=== PATIENT | female | born 1945 | race Caucasian/White ===

== ENCOUNTER → 2018-06-19 | Outpatient (CLI) | payer MEDICARE | LOC: M RAD 13:25 | DX: M25.572 Pain in left ankle and joints of left foot (principal); Z96.7 Presence of other bone and tendon implants; M19.072 Primary osteoarthritis, left ankle and foot | CPT/HCPCS: 73700 ==

== ENCOUNTER → 2019-04-02 | Outpatient (CLI) | payer MEDICARE ==
[~2019-04-02] MED LIST: ISOVUE-370 76% 100ML VIAL (Q9967) As Ordered ONE
--- NOTE | 2019-04-02 11:59 | REP ---
CT STUDY OF THE CHEST WITH IV CONTRAST: HISTORY: Malignant neoplasm of the thymus. No comparison CT study. CT CONTRAST DOSE: 75 mL of intravenous Isovue [address] FINDINGS: Preliminary digital foreign student adviser radiograph shows a degenerative disc disease in the thoracic spine and a tortuous thoracic aorta. There is no evidence of anterior mediastinal mass to suggest a thymic neoplasm. No mediastinal or hilar adenopathy is appreciated. No pleural or pericardial effusion is seen. No adrenal lesion is observed. There are multiple small low-density areas in the liver consistent with cysts. The largest of these measures 1.1 cm in greatest diameter. There is some vascular calcification. There is no evidence of aortic dissection. No axillary or extrathoracic mass or adenopathy is seen. No acute bony abnormality is observed. Lung window settings show no pulmonary nodule or mass lesion. Incidental note is made of two small intrarenal calculi in the upper pole collecting system of the right kidney, each 3 mm in greatest diameter. IMPRESSION: No evidence of mediastinal mass or adenopathy. No active cardiopulmonary disease. Small hepatic cysts and intrarenal nephrolithiasis right kidney noted as incidental findings. Otherwise no active disease. Electronically Signed by Gera Olguin MD 04/02/2019 12:39 P
== END ==
LOC: M RAD 09:08
PROVIDERS: ATTEND Psychiatry & Neurology Neurology
DX: C37 Malignant neoplasm of thymus (principal)
CPT/HCPCS: 71260; 82565; 84520; Q9967

== ENCOUNTER → 2019-04-02 | Outpatient (REF) | payer MEDICARE ==
[2019-04-02 10:48] LABS: BLOOD UREA NITROGEN 18 MG/DL (7-18); CREATININE FOR GFR 0.89 MG/DL (0.55-1.30); GLOMERULAR FILTRATION RATE > 60.0 (>39)
== END ==
LOC: M LAB REF 10:07
PROVIDERS: ATTEND Psychiatry & Neurology Neurology
DX: C37 Malignant neoplasm of thymus (principal)

== ENCOUNTER → 2019-10-20 | Outpatient (CLI) | payer MEDICARE ==
--- NOTE | 2019-10-20 14:30 | REP ---
Bilateral lower extremity arterial Doppler ultrasound: History: Leg pain. Findings: Ankle brachial indices are normal measured at 1.2 on the right and 0.9 on the left. Triphasic and biphasic waveforms are noted throughout both lower extremity arterial arterial Doppler tracings. Reversal of flow in the distal anterior tibial artery on the left is observed. Minimal plaquing is seen. No stenotic site is identified. Right lower extremity arterial Doppler velocity chart: CF A 129 cm/S Profunda 62 Proximal SFA 111 Mid SFA 96 Distal SFA 85 Popliteal 48 Proximal AT A 39 Tibioperoneal trunk 52 Proximal TASTE TESTER 28 Distal TASTE TESTER 84 Distal AT A 40 Left lower extremity arterial Doppler velocity chart: CF A 85 cm/S Profunda 69 Proximal SFA 101 Mid SFA 97 Distal SFA 75 Popliteal 48 Proximal AT A 51 Tibioperoneal trunk 68 Proximal TASTE TESTER 15 Distal TASTE TESTER 49 Distal AT A 27, reversed. Electronically Signed by Gera Olguin MD 10/20/2019 02:23 P
== END ==
LOC: M RAD 12:47
PROVIDERS: ATTEND Physician Assistant
DX: M79.606 Pain in leg, unspecified (principal)

== ENCOUNTER → 2020-07-08 | Outpatient (CLI) | payer MEDICARE ==
--- NOTE | 2020-08-02 08:04 | REP ---
BILATERAL LOWER EXTREMITY DOPPLER ULTRASOUND CLINICAL: Chronic venous insufficiency. TECHNIQUE: Real-time gerard scale and color Doppler evaluation using linear high frequency transducer. FINDINGS: Ultrasound examination of the bilateral deep venous structures from the common femoral vein to the popliteal vein demonstrates normal compressibility, flow, and wave patterns in response to respiration and augmentation, and there is no evidence for deep venous thrombosis. Right Bakers cyst in the popliteal fossa measures 3.6 x 1.3 x 3.3 cm. Reflux evaluation demonstrates no reflux through the left lower extremity. Reflux evaluation of the right lower extremity demonstrates reflux through the proximal to mid greater saphenous vein. The proximal saphenous vein measures 6.6 mm in diameter with reflux duration 3.9 seconds. The mid greater saphenous vein measures 4.6 mm in diameter with reflux duration 4.8 seconds. The examination was performed with the bed tipped as the patient could not stand. Multiple right-sided collaterals were also identified. IMPRESSION: * No evidence for deep venous thrombosis. * Mild right lower extremity greater saphenous vein reflux and few right lower extremity collaterals noted. * Bakers cyst in the right popliteal fossa. MTDD
== END ==
LOC: M RAD 12:50
PROVIDERS: ATTEND Physician Assistant
DX: I87.2 Venous insufficiency (chronic) (peripheral) (principal); M71.21 Synovial cyst of popliteal space [Baker], right knee; M79.604 Pain in right leg

== ENCOUNTER → 2021-12-15 | Outpatient (CLI) | payer MEDICARE ==
[2021-12-15 15:34] LABS: BASO # 0.1 10^3/uL (0.0-0.2); BASO % 0.7 % (0.0-1.0); EOS # 0.2 10^3/uL (0.0-0.5); EOS % 2.6 % (0.0-3.0); HEMATOCRIT 44.8 % (36.0-47.0); HEMOGLOBIN 14.3 g/dl (12.0-15.5); LYMPH # 1.8 10^3/uL (1.5-5.0); MEAN CORPUSCULAR HEMOGLOBIN 30.8 pg (27.0-33.0); MEAN CORPUSCULAR HGB CONC 31.9 g/dl (32.0-36.5); MEAN CORPUSCULAR VOLUME 96.6 fl (80.0-96.0); MONO # 0.6 10^3/uL (0.0-0.8); MONO % 7.6 % (2.0-8.0); NEUTROPHILS # 5.1 10^3/uL (1.5-8.5); NEUTROPHILS % 65.8 % (36.0-66.0); PLATELET COUNT, AUTOMATED 270 10^3/uL (150-450); RED BLOOD COUNT 4.64 10^6/uL (4.00-5.40); WHITE BLOOD COUNT 7.7 10^3/uL (4.0-10.0)
[2021-12-15 15:46] LABS: ALBUMIN 3.9 GM/DL (3.2-5.2); ALT/SGPT 24 U/L (12-78); BILIRUBIN,TOTAL 0.6 MG/DL (0.2-1.0); BLOOD UREA NITROGEN 26 MG/DL (7-18); CALCIUM LEVEL 9.7 MG/DL (8.8-10.2); CARBON DIOXIDE LEVEL 30 MEQ/L (21-32); CHLORIDE LEVEL 105 MEQ/L (98-107); CREATININE FOR GFR 0.87 MG/DL (0.55-1.30); FERRITIN 90 NG/ML (8-252); FREE T4 1.29 NG/DL (0.76-1.46); GLOMERULAR FILTRATION RATE > 60.0 (>39); GLUCOSE, FASTING 84 MG/DL (70-100); IRON (FE) 89 UG/DL (50-170); PERCENT SATURATION 23.2 % (13.2-45.0); POTASSIUM SERUM 5.1 MEQ/L (3.5-5.1); RHEUMATOID FACTOR QUANT < 10.0 IU/ML (<15.0); SODIUM LEVEL 140 MEQ/L (136-145); THYROID STIMULATING HORMONE 0.417 uIU/ML (0.358-3.740); TOTAL IRON BINDING CAPACITY 383 UG/DL (250-450); TOTAL PROTEIN 7.2 GM/DL (6.4-8.2)
[2021-12-15 15:48] LABS: FOLATE > 24.0 NG/ML; TOTAL 25(OH) VITAMIN D 32.4 NG/ML (30.0-100.0); VITAMIN B12 LEVEL 661 PG/ML
[2021-12-15 16:00] LABS: ERYTHROCYTE SEDIMENTATION RATE 6 mm/hr (0-30)
== END ==
LOC: M PLALAB 13:05
PROVIDERS: ATTEND Psychiatry & Neurology Neurology
DX: E07.9 Disorder of thyroid, unspecified (principal); E55.9 Vitamin D deficiency, unspecified; E61.1 Iron deficiency; E11.40 Type 2 diabetes mellitus with diabetic neuropathy, unspecified